=== PATIENT | male | born 1935 | race Caucasian/White ===

== ENCOUNTER 2021-11-10 20:41 | Inpatient (IN) | payer OTHER ==
[~2021-11-10] VITALS: Ht 162.6 cm; Wt 53.5 kg
[2021-11-10 20:43] VITALS: BP 122/75
[2021-11-10 21:23] LABS: ABSOLUTE BASOPHILS 0.1 thou/uL (0.0-0.2); ABSOLUTE EOSINOPHILS 0.2 thou/uL (0.0-0.7); ABSOLUTE MONOCYTES 0.5 thou/uL (0.0-1.2); BASOPHILS 0.5 %; EOSINOPHILS 1.9 %; HEMATOCRIT 43.1 % (42.0-52.0); HEMOGLOBIN 14.1 gm/dL (14.0-18.0); LYMPHOCYTES 10.5 %; MCH 32.5 pg (26.0-34.0); MCHC 32.8 g/dL (28.0-37.0); MONOCYTES 5.6 %; NUCLEATED RBCS 0 /100WBC; PLATELET COUNT* 230 thou/uL (150-400); POLYS 81.5 %; RBC 4.36 mil/uL (4.50-6.00); RDW-CV 14.8 % (10.5-14.5); WBC 9.8 thou/uL (4.0-11.0)
[2021-11-10 21:35] LABS: CALCIUM 8.2 mg/dL (8.5-10.1); CREATININE 0.7 mg/dL (0.6-1.3); POTASSIUM 4.3 mmol/L (3.5-5.1)
[2021-11-10 21:43] LABS: pH 7.367 (7.340-7.450)
[2021-11-10 21:45] LABS: ALBUMIN 2.8 g/dL (3.4-5.0); MAGNESIUM 1.5 mg/dL (1.8-2.4); TOTAL BILIRUBIN 0.5 mg/dL (<0.1-1.0); TOTAL PROTEIN 6.4 g/dL (6.4-8.2)
[2021-11-10 21:48] LABS: PCO2 50.3 mmHg (35.0-45.0); PO2 124.7 mmHg (75.0-100.0)
[2021-11-10 22:34] LABS: URINE BILIRUBIN NEGATIVE (Negative); URINE BLOOD TRACE (Negative); URINE CLARITY CLEAR; URINE COLOR YELLOW; URINE GLUCOSE-RANDOM NEGATIVE (Negative); URINE KETONES NEGATIVE (Negative); URINE LEUKOCYTES-REFLEX NEGATIVE (Negative); URINE NITRITE-REFLEX NEGATIVE (Negative); URINE PROTEIN NEGATIVE (Negative); URINE SPECIFIC GRAVITY 1.025 (1.005-1.030); URINE UROBILINOGEN 0.2 E.U./dl (0.2-1.0)
[2021-11-10] MEDS ORDERED: ROPINIROLE HCL4 MG PO (22:52)
[2021-11-10] MEDS ORDERED: NEURONTIN100 MG PO (22:52)
[2021-11-11] VITALS (7 sets, daily range): BP systolic 90–123; BP diastolic 47–75
--- NOTE | 2021-11-11 09:29 | EKG ---
[place] [address] ELECTROCARDIOGRAM REPORT Name: GRAHAM CHARLES Room: [address] ADM IN M.R.#: [id number] Admission: 11/10/21 Attend Phys: Jeferson Ortega Discharge: Date of : 35 Date of Service: 11/10/212044 Report #: [id number] THIS REPORT FOR: //name// [facility] ED Test Date: 2021-11-10 Test Time: 20:45:13 Pat Name: GRAHAM CHARLES Department: Room: [facility] Gender: M [employer] Repairer: [place] : 1935 Requested By: Shahla Julio Order Number: [id number] MD: Vlad Sagastume Measurements Intervals [place] Rate: 96 P: 55 HI: 216 QRS: 50 QRSD: 95 T: 40 QT: 358 QTc: 453 Interpretive Statements Sinus rhythm with occasional PVCs Prolonged HI interval No previous ECG available for comparison Electronically Signed On 11-11-2021 9:29:38 [employer]NAGER by Vlad Sagastume [email or web address] <ELECTRONICALLY SIGNED> By: Vlad Sagastume MD, [facility] 11/11/21 0929 [id number] 44 Vlad Sagastume MD, [facility] /EPI
[2021-11-11] MEDS ORDERED: TYLENOL325 MG PO (11:37)
[2021-11-12 00:46] VITALS: BP 102/48
[2021-11-12 04:45] VITALS: BP 95/45
[2021-11-12 08:05] VITALS: BP 102/52
[2021-11-12 12:00] VITALS: BP 104/52
[2021-11-12 16:26] VITALS: BP 148/77
[2021-11-12 20:27] VITALS: BP 107/59
[2021-11-13] VITALS (7 sets, daily range): BP systolic 110–131; BP diastolic 47–64
[2021-11-13] MEDS ORDERED: PREDNISONE 10 M10 MG PO (09:34)
[2021-11-13] MEDS ORDERED: CEFDINIR300 MG PO (09:34)
== END 2021-11-13 14:55 | disposition home health service (06) | DRG 177 ==
LOC: M.ERS 20:41 → M.2W 22:10 → M.TBA-ER 22:10 → M.2W 11-11 00:41
PROVIDERS: Emergency Medicine; ADMIT Internal Medicine; ATTEND Internal Medicine
PROC: 5A09357 Assistance with Respiratory Ventilation, Less than 24 Consecutive Hours, Continuous Positive Airway Pressure (ICD-10-PCS; principal; 2021-11-11)
DX: J15.6 Pneumonia due to other Gram-negative bacteria (principal); J96.01 Acute respiratory failure with hypoxia; J96.02 Acute respiratory failure with hypercapnia; E44.1 Mild protein-calorie malnutrition; E87.2 Acidosis; Z20.822 Contact with and (suspected) exposure to COVID-19; J43.9 Emphysema, unspecified; E83.42 Hypomagnesemia; I10 Essential (primary) hypertension; Z95.5 Presence of coronary angioplasty implant and graft; Z87.891 Personal history of nicotine dependence; Z68.20 Body mass index [BMI] 20.0-20.9, adult; Z79.82 Long term (current) use of aspirin; Z79.899 Other long term (current) drug therapy; I25.2 Old myocardial infarction